=== PATIENT | male | born 1980 | race Caucasian/White ===

== ENCOUNTER 2022-09-08 11:34 | Emergency (ER) | payer OTHER ==
[~2022-09-08] VITALS: Ht 178 cm; Wt 125.0 kg
--- NOTE | 2022-09-08 11:53 | ED GU-Male ---
General Chief Complaint: - Reproductive Stated Complaint: TESTICULAR PAIN Source: patient Exam Limitations: no limitations (AC UP) History of Present Illness Date Seen by Provider: Sep 08, 2022 Time Seen by Provider: 11:50 Initial Comments Patient is a 41-year-old male who presents ED with pain in his right testicle. Pain started around 2 to 3 weeks ago. Dull achy pain for the most part constant. Worse with movement. Denies of any specific injury. Patient states last noted in large veins on the right scrotum. He does have a history of right inguinal hernia repair last May with mesh. He states he is concerned as it feels like his right testicle is smaller. Denies any redness, swelling or pain on palpation. No bulge noted. No dysuria, hematuria or increased urine frequency. Not concern for sexual transmitted infection. History epididymitis, Crohn's. Denies any fever, chills, body aches, headache, dizziness. (AC UP) Allergies and Home Medications Allergies Coded Allergies: No Known Drug Allergies (Unverified , 09/08/22) Patient Home Medication List Home Medication List Reviewed: Yes (AC UP) Review of Systems Review of Systems Constitutional: No chills, No diaphoresis, No fever, No malaise, No weakness EENTM: No ear pain, No blurred vision, No double vision, No mouth pain, No mouth swelling Cardiovascular: No chest pain Gastrointestinal: No abdominal pain, No diarrhea, No nausea, No vomiting Genitourinary: denies burning, denies discharge, denies dysuria, denies frequency; other (right Testicle discomfort) Musculoskeletal: No back pain, No joint pain, No joint swelling, No muscle pain Psychiatric/Neurological: Denies Anxiety (AC UP) All Other Systemes Reviewed Negative Unless Noted: Yes (AC UP) Physical Exam Vital Signs Vital Signs - First Documented 09/08/22 11:43 Temp 36.8 Pulse 68 Resp 18 B/P (MAP) 149/101 (117) Pulse Ox 97 O2 Delivery Room Air (SIOBHAN BULLOCK MD) Vital Signs Capillary Refill : (AC UP) Height, Weight, BMI Height: '" Weight: lbs. oz. kg; BMI Method: General Appearance: WD/WN, no apparent distress HEENT: PERRL/EOMI, normal ENT inspection, TMs normal, pharynx normal Neck: non-tender, full range of motion, supple, normal inspection Cardiovascular: regular rate, rhythm, no edema, no gallop, no JVD Respiratory: chest non-tender, lungs clear, no respiratory distress, no accessory muscle use Gastrointestinal: normal bowel sounds, non tender, soft, no organomegaly Genital/Rectal: other (No testicular swelling, redness or tenderness. No bulge. No lesions. 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, no motor/sensory deficits, alert, normal mood/affect, oriented x 3 Skin: normal color, warm/dry (AC UP) Progress/Results/Core Measures Suspected Sepsis SIRS Temperature: Pulse: Respiratory Rate: Blood Pressure / Mean: (AC UP) Results/Orders Lab Results Laboratory Tests Test 09/08/22 11:55 Range/Units Urine Color YELLOW Urine Clarity CLEAR Urine pH 6.0 5-9 Urine Specific Funk 1.025 H 1.016-1.022 Urine Protein NEGATIVE NEGATIVE Urine Glucose (UA) NEGATIVE NEGATIVE Urine Ketones NEGATIVE NEGATIVE Urine Nitrite NEGATIVE NEGATIVE Urine Bilirubin NEGATIVE NEGATIVE Urine Urobilinogen 1.0 < = 1.0 MG/DL Urine Leukocyte Esterase NEGATIVE NEGATIVE Urine RBC (Auto) NEGATIVE NEGATIVE Urine RBC NONE /HPF Urine WBC NONE /HPF Urine Squamous Epithelial Cells NONE /HPF Urine Crystals NONE /LPF Urine Bacteria NEGATIVE /HPF Urine Casts NONE /LPF Urine Mucus SMALL H /LPF Urine Culture Indicated NO (SIOBHAN BULLOCK MD) Vital Signs/I&O 09/08/22 09/08/22 11:43 13:20 Temp 36.8 Pulse 68 70 Resp 18 16 B/P (MAP) 149/101 (117) 152/90 Pulse Ox 97 98 O2 Delivery Room Air Room Air (SIOBHAN BULLOCK MD) Vital Signs/I&O Capillary Refill : (AC UP) Departure Communication (PCP) Patient is a 41-year-old male presents ED with right testicle pain for the past 2 to 3 weeks. Noted veins to the right groin and right testicle. Denies redness or swelling. Not concern for UTI or STD. Urinalysis was ordered which was negative for infection. He has no flank pain or abdominal pain. History of right inguinal hernia repair last May. No evidence of palpable mass. Negative for hernia on exam. No inguinal lymphadenopathy. Due to current complaint and pain ultrasound of the testicle was ordered. Small hydroceles and a small left variceal was noted. Normal appearance of the testicles. No evidence of mass. Incidental subcentimeter epididymal head cyst is benign findings without convincing features of epididymitis or epididymal hypervascularity. Does not appear to be epididymitis. Discussed all results with patient. Recommend good underwear to help with support. Discussed following up with urology for further evaluation. Patient does state he has a urologist who he can follow-up with with the [facility]. Did provide [facility] urology or [facility]. If any increasing pain, swelling redness to return back to ED. Patient agrees with plan of action. (AC UP) Impression Primary Impression: Testicular pain Disposition: 01 HOME, SELF-CARE Condition: Stable Departure-Patient Inst. Decision time for Depature: 13:16 (AC UP) Referrals: JOSE ANGEL HILL DO (PCP/Family) Primary Care Physician Patient Instructions: Varicocele Add. Discharge Instructions: Recommend following up with urology for further evaluation. All discharge instructions reviewed with patient and/or family. Voiced understanding. ATTENDING PHYSICIAN NOTE: I was physically present in the Emergency Department during the evaluation and care of this patient as attending physician, and I was available for consultation and assistance. I did not personally interview or examine this patient, nor was I otherwise directly involved in the care or decision making for this patient. (SIOBHAN BULLOCK MD) AC UP Sep 08, 2022 11:53 SIOBHAN BULLOCK MD Sep 09, 2022 08:39
[2022-09-08 12:02] LABS: BILIRUBIN,URINE NEGATIVE (NEGATIVE); CLARITY,URINE CLEAR; COLOR,URINE YELLOW; GLUCOSE, URINE (UA) NEGATIVE (NEGATIVE); KETONES,URINE NEGATIVE (NEGATIVE); LEUKOCYTE ESTERASE ,URINE NEGATIVE (NEGATIVE); NITRITE,URINE NEGATIVE (NEGATIVE); PROTEIN,URINE NEGATIVE (NEGATIVE)
[2022-09-08 12:09] LABS: BACTERIA,URINE NEGATIVE /HPF
--- NOTE | 2022-09-08 13:08 | Diagnostic Imaging Report ---
PROCEDURE: US Scrotum. TECHNIQUE: Multiple real-time grayscale images were obtained over the scrotum in various projections bilaterally. INDICATION: Right scrotal pain. FINDINGS: Testicular parenchyma appeared normal bilaterally. Both testicles showed normal color Doppler blood flow. There are small unilocular simple bilateral hydroceles. There are bilateral epididymal head cysts on the left, multiple present, the largest 7 mm on the right, solitary epididymal head cyst is 5 mm. Epididymal echotexture, morphology, and color Doppler blood flow otherwise unremarkable. There is a small right-sided varicocele. No hernia. No findings of torsion, orchitis, neoplasm, or epididymitis. IMPRESSION: 1. Small hydroceles and a small left varicocele. Normal appearance of the testicles. Incidental subcentimeter epididymal head cysts as benign findings without convincing features of epididymitis or epididymal hypervascularity. 2. No hernia or mass. Dictated by: Dictated on workstation # [id number]
[2022-09-08 13:20] VITALS: BP 152/90
== END 2022-09-08 13:20 | disposition home or self-care (01) ==
LOC: ER 11:39
DX: N43.3 Hydrocele, unspecified (principal); N50.3 Cyst of epididymis; I86.1 Scrotal varices
CPT/HCPCS: 76870; 81000